=== PATIENT | female | born 1965 | race Caucasian/White ===

== ENCOUNTER → 2020-12-10 10:57 | Outpatient (CLI) | payer OTHER, SELFPAY ==
[2020-12-10 12:02] LABS: Absolute Lymphocyte Count 1.99 X10^3/uL (0.83-4.51); Absolute Neutrophil Count 3.7 X10^3/uL (2.0-7.7); Basophil# 0.05 X10^3/uL; Basophil% 0.8 % (0-1); Eosinophil# 0.14 X10^3/uL; Eosinophils% 2.2 % (0-5); Hemoglobin 13.2 g/dL (12.0-15.0); Lymphocyte # 1.99 X10^3/ul (0.83-4.51); Lymphocyte % 31.1 % (19-41); Mean Corp Hgb Conc 31.4 g/dL (32-36); Mean Corpuscular Hgb 28.4 pg (27.0-32.0); Mean Corpuscular Volume 90.5 fL (81-99); Mean Platelet Vol. 9.5 fl (6.2-12.0); Monocyte# 0.45 X10^3/uL; NRBC Flagged by Analyzer 0 % (0-5); Neutrophil # 3.72 X10^3/uL (2.7-7.7); Neutrophil % 58.3 % (47-70); Platelet Count 255 K/mm3 (150-450); RBC Distribution Width CV 14.3 % (11.6-14.6); RBC Distribution Width SD 47.5 fl (35.1-43.9); Red Blood Count 4.64 M/mm3 (4.2-5.4); White Blood Count 6.4 K/mm3 (4.4-11.0)
[2020-12-10 12:18] LABS: ALB/GLOB Ratio 0.8 RATIO (0.9-2.4); AST(SGOT) 28 U/L (15-37); Alanine Aminotransfer ALT/SGPT 51 U/L (13-56); Albumin, Serum 3.3 g/dL (3.2-5.0); Alkaline Phosphatase 125 U/L (45-117); Anion Gap 9 (5-15); BUN 26 mg/dL (7-18); BUN/Creat Ratio 19.8 RATIO (10-20); Calcium,Total 8.8 mg/dL (8.5-10.1); Chloride 105 mmol/L (98-107); Cholesterol 245 mg/dL (200); Creatinine, Serum 1.31 mg/dL (0.55-1.02); EST Glomerular Filtration Rate 45 mL/min (>60); Est Glom Filt Rate - Afr Amer 54 mL/min (>60); Globulin 3.9 g/dL (2.2-4.2); Glucose 213 mg/dL (74-106); High Density Lipoprotein 30 mg/dL; Potassium 3.7 mmol/L (3.5-5.1); Protein, Total 7.2 g/dL (6.4-8.2); Sodium Level 141 mmol/L (136-145); Thyroid Stim Hormone (TSH) 1.11 uIU/mL (0.358-3.74); Triglycerides 246 mg/dL; Very Low Density Lipoprotein 49 mg/dL (5-40)
[2020-12-10 12:36] LABS: Hemoglobin A1c 8.6 % (3.8-5.6)
== END ==
PROVIDERS: Visit Provider Nurse Practitioner Family
DX: R53.82 Chronic fatigue, unspecified (principal); M62.81 Muscle weakness (generalized); R68.82 Decreased libido
CPT/HCPCS: 36415; 80053; 80061; 83036; 84443; 85025; 86140

== ENCOUNTER → 2023-01-17 | Outpatient (CLI) | payer BC, SELFPAY ==
[2023-01-17 15:25] LABS: Cholesterol 135 mg/dL (200); High Density Lipoprotein 33 mg/dL; Triglycerides 187 mg/dL; Very Low Density Lipoprotein 37 mg/dL (5-40)
== END | disposition home or self-care (01) ==
LOC: LAB 14:11
PROVIDERS: Referring Provider Psychiatry & Neurology Neurology; Visit Provider Psychiatry & Neurology Neurology
DX: I71.21 Aneurysm of the ascending aorta, without rupture (principal); I66.29 Occlusion and stenosis of unspecified posterior cerebral artery
CPT/HCPCS: 36415; 80061

== ENCOUNTER 2023-03-11 09:00 | Outpatient (RCR) | payer BC, SELFPAY ==
--- NOTE | 2022-12-23 14:22 | HP.PTEVAL_ITS ---
Patient's Visit Information Visit Information Visit Information: ADEN JADE is a 57 year old F referred to Physical Therapy by Dr. Surjit Romano MD with a diagnosis of CVA. Date of Evaluation: 12/23/22 Physical Therapist: Og Chan, FAUSTINOT, OCS, CSCS Visit Plan Frequency: 3x /Week Duration: 4-6 Weeks Plan: 3x/week for 4-65 weeks for: 1. L LE strength adn motor control, ankle strength 2. gait with wh walker and AFO for safety and progression to I, steps when appropriate. 3. strengthen and motor control L UE until OT eval and treat. Pt to do ex and gait per HEP and will contact Dr. romano for script for OT consult as well as AFO and wh walker script as needed. Note sent to doc for 3 prescription request Subjective Subjective: Had R sided stroke 9 days ago on plane to [facility]. Symptoms at the time were L side felt heavy arm and leg. Went to hospital in [facility], EKG, MRi catscan and thought narrowing of artery in brain. Has aortic anyeurism also. Sees neuro at [facility] and on meds for one month at least putting off AAA surgery. On blodd pressure meds also. Never had other symptoms. 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 Lying on couch alot now. 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 Using cane to get around, Had walker in hospital but did not want to use it. uses cane to get around at home and someone needs to be with her. L arm is effected also. Leg drags. Basic ADLS are : needs help dressing, is slow and labored due to L sided problems. bathroom ADLs are OK but mobility needs help. Spnge bathing at home. Has a few steps at home and somebody helps her up and down them. Feeling steadier each day. No HEP for this and no regular exercises. Hobbies: none. Objective Objective: Walks cane in UE and L toe dragging with help form son Samir back to PT corner. Needed min A with cane. Wh walker pulled out and needs min A with this for safety as she drags L toe and places L foot too far medially throwing her off balance L. Can correct the placement of L foot with VC but not the toe drag. Transfers bed adn cahir I but somewhat impulsively wanting to hurry. L knee slams back into extension with stance phase of gait. Can stand without assist in place and ec, L knee hyperextended. Ankle movement L is poor with 1/5 DF strength, 2/5 inversion, 0/5 eversion and 3/5 PF strength. R ankle 4/5. Knee strength L flexion 3+ and ext 3+, R side is 4 hip strength is 3 L abd and ext and 3+ flexion vs 4 on R. Motor control in L LE is mod deficits in proprioception and placement. reflexes 2/3 patella and achilles B and bi and tri B. Sensation to gross light touch UE adn LE WFL to gross touch. proprioception L ankle is poor. UE AROM if full but needs VC to eklevate L arm fully. Has weakness at 3+ in L arm fully and 4- R UE. Again, obvious poor motor control on L UE vs R to touching specific objects. Overall patient is slightly impulsive wanting to hurry through and get better quick at the expense of safety. I educated her as well as her son and dtr today on the benefits of AFO, and need for wh walker at least short term as well as still needing someone with her when she is on her feet. Also recommnded OT for UE deficits. Educated on gait including picking L leg up high until gets AFO, placing it out to side, using walker to help with balance. Also seated heel raises, LAQ, marching as hepo throughout day and UE elevation symmetrically with pics of all of the above and educated where to get bracing and walker Balance/Special Test Scores Lower Extremity Functional Score: 7 Goals Goal 1:: I in use of AFO, wh walker and HEP to help with rehab Goal Time Frame: 4-6 Weeks Goal 2:: Walk into and out of PT with LRD(wh walker) I and safely. Goal Time Frame: 4-6 Weeks Goal 3:: Ascend and descend 8 steps safely with one rail I Goal Time Frame: 4-6 Weeks Goal 4:: Pt feel like she is 75% back to normal activity Goal Time Frame: 4-6 Weeks Goal 5:: Plan to return to work Goal Time Frame: 4-6 Weeks Goal 6:: 45 LEFS score Goal Time Frame: 4-6 Weeks Rehabilitation Potential Physical Therapy Diagnosis: CVa with L sided weakness and motor control deficits effecting function/mobility Rehabilitation Potential: Fair Anticipated Interventions Patient/Client Instruction: Educate patient on: Condition and Plan of Care Therapeutic Exercise to Include: Strength training, Balance training, Coordination, Postural training, Flexibilty training, Gait and locomotor training, Neuromotor development, Passive ROM and Active ROM For the Purpose of:: To decrease pain, To increase ROM, To improve nutrient delivery to tissue, To improve muscle performance and motor function, To increase tolerance to activity/condition/position, To improve ability of physical actions for home/community/work/leisure and To improve gait and locomotor functions Orthotics: Brace Comment: AFO and david walker recommended. For the Purpose of:: To improve gait and locomotor functions and To improve safety Text: Thank you for the opportunity to evaluate your patient. For Medicare and Medicare HMO plans, please review the plan of care and approve it. It will need to be FAXED BACK to us at [phone] for Medicare purposes. For Medicare only, by signing this I certify the plan of care. Please let me know if there are questions or concerns regarding this plan of care. Physician Signature: Date:
--- NOTE | 2023-01-04 08:03 | HP.OTEVAL_ITS ---
Patient's Visit Information Visit Information Visit Information: ADEN JADE is a 57 year old F, referred to Occupational Therapy by Dr. Surjit Romano MD, with a diagnosis of CVA left hemiparesis. Date of Evaluation: 01/03/23 Occupational Therapist: Abbie Quiñones, OTR/Lisa, CHT Subjective Subjective: This 57 year old female was seen for OT eval with dx of CVA. Pt states this happened 2022 while traveling to [facility]. Symptoms at the time were L side felt heavy arm and leg. Went to hospital in [facility], EKG, MRi catscan and thought narrowing of artery in brain. Has aortic aneurysm also. Sees neuro at [facility] and on meds for one month at least putting off AAA surgery. On blood pressure meds also. Never had other symptoms. 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 Lying on couch alot now. 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 Using cane to get around, Had walker in hospital but did not want to use it. uses cane to get around at home and someone needs to be with her. L arm is effected also. Leg drags. Basic ADLS are : needs help dressing, is slow and labored due to L sided problems. bathroom ADLs are OK but mobility needs help. Spnge bathing at home. Has a few steps at home and somebody helps her up and down them. Feeling steadier each day. No HEP for this and no regular exercises. Hobbies: none. [ End ] ADLs Eating: Cut food Comments: has shower chair Grooming: Squeeze toothpaste on and [place] teeth Comments: grooming Kitchen: Lift gallon of milk, Take dish out of oven, Load/unload research compliance specialist and Place dish in microwave Household: Vacuum, Sweep/mop and Laundry Yard: Mow lawn and [place] Miscellaneous: Use computer keyboard Comments: pt states she notices slower movements but does most tasks with fair ability currently has 3 children to assist with pt and family family driving pts Pts family doing grocery shopping Home 2 story with two entry- pt has AFO received Tuesday Using cane to get around, Had walker in hospital but did not want to use it. uses cane to get around at home and someone needs to be with her. L arm is effected also. Leg drags. Basic ADLS are : needs help dressing, is slow and labored due to L sided proble ms. bathroom ADLs are OK but mobility needs help. Has a few steps at home and somebody helps her up and down them. Feeling steadier each day. No HEP for this and no regular exercises. Hobbies: none. ROM ROM Comments: pt demo full ROM of BUE noted left UE slight ataxic motion and limited increase time for accuracy. Strength Shoulder: shoulder flexion 13 left 8 Elbow: biceps right 18 left 15 triceps right left 19cm Car Dealer: right 60# left 55# Lateral Pinch: right 20# left 18# Tripod Pinch: right 10# left 12# Strength Comments: pt demo with decrease in left UE strength Sensation Sensation Comments: pt states she has a spot on dorsal forearm Nine Hole Peg Right: right 19.92 sec. Left: left 39.05 sec. In-Hand Manipulation Finger to Palm Translation: Normal - Right and Mild - Left Palm to Finger Translation: Normal - Right and Mild - Left Stroke Specific Quality of Life Total SS-QOL Score: 121 Goals Goal:: Pt will demo a increase in left UE fet2 peak force by 10# to increase pts IND with ADLs and IADls by d.c Goal:: pt will demo a increase in left UE motor control to accurately grasp med, small and large objects to simulate placing or removing items out of cabinets without dropping them by d.c. pt will demo increase in left FMC by decreasing timed 9 hole peg test by 15 sec. by d/c. pt will demo IND with bilateral hand skills to tie, button and manipulate other fasteners by d/c Goal:: pt will report to return to baseline with performing ADLs and IADLS by D/C. Rehabilitation General Assessment: pt demo with a decrease in left UE strength/ poor left UE motor control limiting pts IND with ADLs, IADLs and returning to work. Pt would benefit from skilled OT services 2-3x week for 6 weeks to return pt to her PLOF. Today therapist ed. pt on HEP and gave handouts- pt demo understanding and agree to POC. Rehabilitation Potential: Good Anticipated Interventions Anticipated Interventions: A/AAROM/PROM, Strengthening, Ergonomic Education, Fine Motor Coord/Asim, Neuro Reeducation, ADL Training, Education re assistive Equipment and Home Program Visit Plan Frequency: 2-3x /Week Duration: 6 Weeks TEXT: Thank you for the opportunity to evaluate your patient. For Medicare and Medicare HMO plans, please review the plan of care and approve it. It will need to be FAXED BACK to us at [phone] for Medicare purposes. Please let me know if there are questions or concerns regarding this plan of care. Physician Signature: Date:
--- NOTE | 2023-01-21 14:34 | HP.PTREVAL ---
Re-Evaluation Intro: Dr. Surjit Romano MD, It has been my pleasure to treat ADEN JADE over the last 11 visits for CVA /L weakness. Please see the progress note below for an update on the physical therapy plan of care! Subjective Subjective: I am getting better. But is discouraged right now as she feels plateaud for the last week. I can stand and walk safer than a month ago and needs to hold on less. Not wearing AFO b/c she doesn't think she needs it. Glad she had it for that time period. Using cane out and about and nothing at home. did fall to her knee yesterday leading with bad legs on step and it was too weak.. No injury. Got up well.Go up steps with right leg now. Sleep is OK if not disturbed. Still needs to get back her endurance, Can;t stand long enough to cook without getting tired. Has to rest after minimal activity currently. Legs need to be strenghtened. To doctor Neuro on January 26, Dr. Romano. Objective Objective/Function: Walks with cane to PT mod I with L steppage gait. Walks 200 feet safely prior to starting to mildly cath L toe, realizing it on her own and correcting. Walk 100 feet without AD including FGA with wider DENISHA and more steppage but able with out assist. Everisoon strength still poor at 2 on L and DF 3+ at 14 #, DF much improved. Steps are reciprocal up with rail but weak on L and not full extending. Gait pattern shows no slamming of L knee into extension today as previously. Descends steps onto R only with railing. Goals still appropriate with another 4-6 week plan of care. Plan Plan Plan: continue 3x/week , please ensure ankle strength and proprioception L and to HEP...please get on sink exercises at home. Please progress to more aggressive strength training in gym and functionally in PT and work on balance and gait also. Steps. Balance/Gait/Functional tests Balance/Special Test Scores Functional Gait Assessment Score: 19 % Disability: 36.6700 Lower Extremity Functional Score: 21 Goals Goals Goal 1:: I in use of AFO, wh walker and HEP to help with rehab Goal Time Frame: 4-6 Weeks Goal Progress: got and used. Goal 2:: Walk into and out of PT with LRD(wh walker) I and safely. Goal Time Frame: 4-6 Weeks Goal Progress: cane Goal 3:: Ascend and descend 8 steps safely with one rail I Goal Time Frame: 4-6 Weeks Goal Progress: yes, not reciprocal Goal 4:: Pt feel like she is 75% back to normal activity Goal Time Frame: 4-6 Weeks Goal Progress: 30% Goal 5:: Plan to return to work Goal Time Frame: 4-6 Weeks Goal Progress: not ready, approp Goal 6:: 45 LEFS score Goal Time Frame: 4-6 Weeks Goal Progress: Progressing Anticipated Interventions Anticipated Interventions Patient/Client Instruction: Educate patient on: Condition and Plan of Care Therapeutic Exercise to Include: Strength training, Balance training, Coordination, Postural training, Flexibilty training, Gait and locomotor training, Neuromotor development, Passive ROM and Active ROM For the Purpose of:: To decrease pain, To increase ROM, To improve nutrient delivery to tissue, To improve muscle performance and motor function, To increase tolerance to activity/condition/position, To improve ability of physical actions for home/community/work/leisure and To improve gait and locomotor functions Orthotics: Brace Comment: AFO and wh walker recommended. For the Purpose of:: To improve gait and locomotor functions and To improve safety Re-Evaluation Ending Re-evaluation ending: Please do not hesitate to contact me at [phone] by phone or if you have questions or concerns regarding this new plan of care! Sincerely, Og Chan, DPT, OCS, CSCS
--- NOTE | 2023-02-09 13:31 | HP.PTREVAL ---
Re-Evaluation Intro: Dr. Surjit Romano MD, It has been my pleasure to treat ADEN JADE over the last 18 visits for CVA/L weakness. Please see the progress note below for an update on the physical therapy plan of care! Subjective Subjective: I have plateau'd . I am still hobbling. Walking is not getting better. Had a fall a week ago catching toe when walking real fast. Not using AFO. Cane never ahome. Uses cane for longer distances. Neuro says this is as good as she may get. Not done ex lately as she has not felt like it but has a program. Objective Objective/Function: Walks with some L awkwardness but I without AD with wide DENISHA, motor control worse on L vs R. I with and without cane. Catches toe L once self corrected. FGA is similar to last time as is LEFS. pt feels like she could continue in gym with one more instruct visit and will get back to HEP at sink. 2 goals still appropriate and fair prognosis with compliance. Plan Plan Plan: 3x/week fro 4 weeks. Please give list of gym ex and let patient complete I prior or after mid day sessions. Focus in PT on 30 min L leg proprioception, motor control and fine motor and gait with narrowing DENISHA and heel to toe and funcitonal challenges utiizing L LE. Balance/Gait/Functional tests Balance/Special Test Scores Functional Gait Assessment Score: 22 % Disability: 26.6700 Lower Extremity Functional Score: 23 Goals Goals Goal 1:: I in use of AFO, wh walker and HEP to help with rehab Goal Time Frame: 4-6 Weeks Goal Progress: met, not using. Goal 2:: Walk into and out of PT with LRD(wh walker) I and safely. Goal Time Frame: 4-6 Weeks Goal Progress: Goal Met Goal 3:: Ascend and descend 8 steps safely with one rail I Goal Time Frame: 4-6 Weeks Goal Progress: Goal Met Goal 4:: Pt feel like she is 75% back to normal activity Goal Time Frame: 4-6 Weeks Goal Progress: 50%, appropriate Goal 5:: Plan to return to work Goal Time Frame: 4-6 Weeks Goal Progress: not ready, approp Goal 6:: 45 LEFS score Goal Time Frame: 4-6 Weeks Goal Progress: Not Progressing, appropri Anticipated Interventions Anticipated Interventions Patient/Client Instruction: Educate patient on: Condition and Plan of Care Therapeutic Exercise to Include: Strength training, Balance training, Coordination, Postural training, Flexibilty training, Gait and locomotor training, Neuromotor development, Passive ROM and Active ROM For the Purpose of:: To decrease pain, To increase ROM, To improve nutrient delivery to tissue, To improve muscle performance and motor function, To increase tolerance to activity/condition/position, To improve ability of physical actions for home/community/work/leisure and To improve gait and locomotor functions Orthotics: Brace Comment: AFO and wh walker recommended. For the Purpose of:: To improve gait and locomotor functions and To improve safety Re-Evaluation Ending Re-evaluation ending: Please do not hesitate to contact me at [phone] by phone or if you have questions or concerns regarding this new plan of care! Sincerely, Og Chan, DPT, OCS, CSCS
--- NOTE | 2023-02-13 11:43 | OTREVAL_ITS ---
Re-Evaluation Intro: Dr. Surjit Romano MD, It has been my pleasure to treat ADEN JADE over the last 17 visits for CVA left hemiparesis. Please see the progress note below for an update on the occupational therapy plan of care! Subjective Subjective: pt arrives to session: following PT. pt states she has trouble with balance letting her dogs out. pt states she can not get left foot in shoe. pt states she has difficulty to hold her left hand steady- Objective Objective/Function: Operation Specialist: right 80# left 65# Lateral Pinch: right 20# left 20# Tripod Pinch: right 13# left 14# left shoulder flex 13#/ext 19# right shoulder flex 23#/19# pt states she is doing her HEP (t-band) Plan Plan Frequency: 2-3x /Week Duration: 6 Weeks Visits in this POC: (30 OT/PT combined) 6 weeks (2-3x week) Plan: Continue POC: 6 weeks (2-3x week) have pt work on reaching out infront of her to grasp a number of different wts/ and size objects pt want better gross motor control with reaching- pt would benefit from further skilled OT services 2-3x week for 6 weeks Goals Goals Patient Goals: Regain Mobility, Regain Strength, Use Hand/Wrist/Arm Normally Again, Learn to Manage Lymphedema and Be More Independent in ADLS Goal:: Pt will demo a increase in left UE fet2 peak force by 10# to increase pts IND with ADLs and IADls by d.c pt will demo a increase in gross motor control demo the ability to simulate placing a variety of objects on different shelf heights/carry with left without dropping/and hitting her target at 90% accuracy by d.c to increase pts ind with IADLS. Goal:: pt will demo a increase in left UE motor control to accurately grasp med, small and large objects to simulate placing or removing items out of cabinets without dropping them by d.c. pt will demo increase in left FMC by decreasing timed 9 hole peg test by 15 sec. by d/c. pt will demo IND with bilateral hand skills to tie, button and manipulate other fasteners by d/c Goal:: pt will report to return to baseline with performing ADLs and IADLS by D/C. Anticipated Interventions Anticipated Interventions Anticipated Interventions: A/AAROM/PROM, Strengthening, Ergonomic Education, Fine Motor Coord/Asim, Neuro Reeducation, ADL Training, Education re assistive Equipment and Home Program Re-Evaluation Ending Re-evaluation ending: Please do not hesitate to contact me at [phone] by phone or if you have questions or concerns regarding this new plan of care! Sincerely, Abbie Quiñones, OTR/L, CHT
--- NOTE | 2023-03-11 10:10 | HP.PTDCSUM_ITS ---
Discharge Summary D/C summary: It has been my pleasure to treat ADEN JADE referred by Dr. Surjit Romano MD, with the diagnosis of CVA/L weakness for a total of 30 visit(s). Discharge Date: 03/11/23 Please see the following information for a summary of their discharge status. Subjective Subjective: Walking is better, not using AD unless tired, does not wish to use one. has cane for if she needs it. Activities at home are getting done. Still can't do any heavy lifting, has trouble with dogs on uneven ground(has someone with her). Dressing self except for L arm pain with shirt on as shoulder hurts. L shoulder hurts and will seek medical attention for that. Worsening ability to do bra straps due to pain. Showers self and getting up out of tub is still hard. Steps at home are not a problem but needs to focus. 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 Not much lifting. Will talk to doctor about this. F/u with neuro in [facility]. Pain L knee: Pain Intensity (Out of 10): 0 L shoulder: Pain Intensity (Out of 10): 10 Overall Improvement % Improvement: 75 Objective Objective/Function: Gait is I without AD but avoids full extension L knee and hard time with push off, however safe and funcitonal. Trasnfers chair I. FGA 25/30 and safe on firm flat surface, has compensations with gait but has learned to get around with them well. DF strength 4 L and 4+ R, HS strength 4- L and 4 R, more motor control,slow contraction deficits in these muscles then weakness. UE AROM is WFL, strength is 4-, no pain with shoulder elevation at mid line or IR/er today but hurts end range of flexion especially with thumb down and abduction and ir is slow. Steps are reciprocal with one rail and no pain or obvious funcitonal weakness L to right, agian avoids full extension L knee but able to get this with cues, less motor control at end. Pt has maxxed her visits for this calendar year and is comfortable continuing strength in gym as member. Will contact doctor regarding L shoulder pain options, may be appropriate for more specific L leg motor control therapy in new year if desired, needed or l shoulder pain therapy if found appropriate by physician. Goals Goal 1:: I in use of AFO, wh walker and HEP to help with rehab Goal Progress: not needed. Goal 2:: Walk into and out of PT with LRD(wh walker) I and safely. Goal Progress: Goal Met Goal 3:: Ascend and descend 8 steps safely with one rail I Goal Progress: Goal Met Goal 4:: Pt feel like she is 75% back to normal activity Goal Progress: Goal Met Goal 5:: Plan to return to work Goal Progress: planned Goal 6:: 45 LEFS score Goal Progress: Progressing Plan Plan: d/c to gym program and HEP, reviewed protective strategies of L shoulder and options with treatment. Pt to contact doctor regarding options with L shoulder. D/C Information Discharge Comments: see objective above d/c sentence: If there are questions or concerns regarding this patient's physical therapy, please feel free to call me at [phone]. Thank you for the referral of this patient. Sincerely, Og Chan, DPT, OCS, CSCS Balance/Gait/Functional tests Balance/Special Test Scores Functional Gait Assessment Score: 25 % Disability: 16.6700 Lower Extremity Functional Score: 33 Improvement % Improvement: 75
--- NOTE | 2023-03-11 10:46 | OTREVAL_ITS ---
Re-Evaluation Intro: Dr. Surjit Romano MD, It has been my pleasure to treat ADEN JADE over the last 28 visits for CVA left hemiparesis. Please see the progress note below for an update on the occupational therapy plan of care! Subjective Subjective: pt states she has had increase in left shoulder pain. pt states increase pain with internal rotation Objective Objective/Function: left monitoring analyst 65# initial 55# left shoulder flexion NOT tested initial 13# left shoulder ext. 23# initial 19# left biceps 20.2# initial 15# left triceps 20.5# initial 19# 9 hole peg test initial was 39.05 current 29.0 pt states she since her shoulder started hurting she has increase assistance with dressing- pt states she can perform LB dressing at VLADIMIR Level at times needs assissatce with left shoe on pt states she is using a shower chair with showering and is at VLADIMIR pt goes with son to assist/ Push shopping cart pt states she is VLADIMIR with laundry pt states shis VLADIMIR with cleaning pt states difficulty with taking dogs out due to unlevel ground. pt has made gains with left UE gross motor control since her evaluation- as well with increase in her left monitoring analyst strength. pt also has made gains with performing her ADLs and IADls at a VLADIMIR level pt also has returned to driving - Pt continues to demo deficits in left UE motor control and weakness limiting her from reaching her IND goals- Due to insurance limitations- pt will cont. with her HEP and working out in the gym-\ Therapist advised to contact family for ortho consolation on left shoulder pain. Plan Plan Visits in this POC: due insureace limitation pt will cont. with HEP and gym program Plan: pt will agree to contact family for ortho consolation for pain in left shoulder- pt will cont. with gym ex program and HEP as tolerated Goals Goals Patient Goals: Regain Mobility, Regain Strength, Use Hand/Wrist/Arm Normally Again, Learn to Manage Lymphedema and Be More Independent in ADLS Goal:: Pt will demo a increase in left UE fet2 peak force by 10# to increase pts IND with ADLs and IADls by d.c ( on hold due to shoulder pain) pt will demo a increase in gross motor control demo the ability to simulate placing a variety of objects on different shelf heights/carry with left without dropping/and hitting her target at 90% accuracy by d.c to increase pts ind with IADLS.( goal met) Goal:: pt will demo a increase in left UE motor control to accurately grasp med, small and large objects to simulate placing or removing items out of cabinets without dropping them by d.c. ( goal met) pt will demo increase in left FMC by decreasing timed 9 hole peg test by 15 sec. by d/c. ( met by 10 sec) pt will demo IND with bilateral hand skills to tie, button and manipulate other fasteners by d/c ( increase time to perform ) Goal:: pt will report to return to baseline with performing ADLs and IADLS by D/C. Pt at VLADIMIR level with ADLs -left shoulder pain limiting pts ind. Anticipated Interventions Anticipated Interventions Anticipated Interventions: A/AAROM/PROM, Strengthening, Ergonomic Education, Fine Motor Coord/Asim, Neuro Reeducation, ADL Training, Education re assistive Equipment and Home Program Re-Evaluation Ending Re-evaluation ending: Please do not hesitate to contact me at [phone] by phone or if you have questions or concerns regarding this new plan of care! Sincerely, Abbie Quiñones, OTR/L, CHT
== END 2023-03-11 19:00 | disposition home or self-care (01) ==
LOC: OT 09:00
PROVIDERS: Referring Provider Psychiatry & Neurology Neurology; Visit Provider Psychiatry & Neurology Neurology
DX: I69.354 Hemiplegia and hemiparesis following cerebral infarction affecting left non-dominant side (principal)
CPT/HCPCS: 97110; 97112; 97163; 97164; 97166; 97530

== ENCOUNTER → 2023-08-11 | Outpatient (CLI) | payer BC, SELFPAY ==
[2023-08-11 11:11] LABS: Anion Gap 3 (5-15); BUN 21 mg/dL (7-18); BUN/Creat Ratio 21.5 RATIO (10-20); Chloride 107 mmol/L (98-107); Creatinine, Serum 0.98 mg/dL (0.55-1.02); EST Glomerular Filtration Rate 62 mL/min (>60); Est Glom Filt Rate - Afr Amer 75 mL/min (>60); Glucose 119 mg/dL (74-106); Sodium Level 139 mmol/L (136-145)
== END | disposition home or self-care (01) ==
DX: I47.10 Supraventricular tachycardia, unspecified (principal); R07.9 Chest pain, unspecified; I10 Essential (primary) hypertension
CPT/HCPCS: 36415; 80048

== ENCOUNTER → 2023-08-29 | Outpatient (CLI) | payer BC, SELFPAY ==
[2023-08-29 15:17] LABS: Absolute Lymphocyte Count 2.07 X10^3/uL (0.83-4.51); Basophil# 0.04 X10^3/uL; Basophil% 0.5 % (0-1); Eosinophil# 0.14 X10^3/uL; Eosinophils% 1.8 % (0-5); Hematocrit 43.1 % (37-47); Hemoglobin 13.9 g/dL (12.0-15.0); Lymphocyte # 2.07 X10^3/ul (0.83-4.51); Lymphocyte % 26.7 % (19-41); Mean Corp Hgb Conc 32.3 g/dL (32-36); Mean Corpuscular Hgb 29.5 pg (27.0-32.0); Mean Corpuscular Volume 91.5 fL (81-99); Mean Platelet Vol. 9.8 fl (6.2-12.0); Monocyte# 0.48 X10^3/uL; Monocyte% 6.2 % (0-10); NRBC Flagged by Analyzer 0 % (0-5); Neutrophil # 4.99 X10^3/uL (2.7-7.7); Neutrophil % 64.4 % (47-70); Platelet Count 270 K/mm3 (150-450); RBC Distribution Width CV 13.6 % (11.6-14.6); RBC Distribution Width SD 45.9 fl (35.1-43.9); Red Blood Count 4.71 M/mm3 (4.2-5.4); White Blood Count 7.8 K/mm3 (4.4-11.0)
[2023-08-29 16:22] LABS: Anion Gap 6 (5-15); BUN 25 mg/dL (7-18); BUN/Creat Ratio 16.8 RATIO (10-20); Chloride 106 mmol/L (98-107); Creatinine, Serum 1.49 mg/dL (0.55-1.02); EST Glomerular Filtration Rate 38 mL/min (>60); Est Glom Filt Rate - Afr Amer 46 mL/min (>60); Glucose 215 mg/dL (74-106); Potassium 4.1 mmol/L (3.5-5.1); Sodium Level 140 mmol/L (136-145)
== END | disposition home or self-care (01) ==
LOC: LAB 14:44
DX: I10 Essential (primary) hypertension (principal); R07.9 Chest pain, unspecified
CPT/HCPCS: 36415; 80048; 85025

== ENCOUNTER → 2023-12-13 | Outpatient (CLI) | payer BC, SELFPAY ==
[2023-12-13 19:22] LABS: Absolute Lymphocyte Count 2.58 X10^3/uL (0.83-4.51); Absolute Neutrophil Count 5.4 X10^3/uL (2.0-7.7); Basophil# 0.04 X10^3/uL; Basophil% 0.4 % (0-1); Eosinophil# 0.15 X10^3/uL; Eosinophils% 1.7 % (0-5); Hematocrit 40.9 % (37-47); Hemoglobin 12.9 g/dL (12.0-15.0); Lymphocyte # 2.58 X10^3/ul (0.83-4.51); Lymphocyte % 28.9 % (19-41); Mean Corp Hgb Conc 31.5 g/dL (32-36); Mean Corpuscular Hgb 29.1 pg (27.0-32.0); Mean Corpuscular Volume 92.3 fL (81-99); Mean Platelet Vol. 9.2 fl (6.2-12.0); Monocyte# 0.73 X10^3/uL; Monocyte% 8.2 % (0-10); NRBC Flagged by Analyzer 0 % (0-5); Neutrophil # 5.39 X10^3/uL (2.7-7.7); Neutrophil % 60.5 % (47-70); Platelet Count 260 K/mm3 (150-450); RBC Distribution Width CV 14.3 % (11.6-14.6); RBC Distribution Width SD 48.3 fl (35.1-43.9); Red Blood Count 4.43 M/mm3 (4.2-5.4); White Blood Count 8.9 K/mm3 (4.4-11.0)
[2023-12-13 19:37] LABS: ALB/GLOB Ratio 0.9 RATIO (0.9-2.4); AST(SGOT) 14 U/L (15-37); Alanine Aminotransfer ALT/SGPT 24 U/L (13-56); Albumin, Serum 3.6 g/dL (3.2-5.0); Alkaline Phosphatase 107 U/L (45-117); Anion Gap 6 (5-15); BUN 19 mg/dL (7-18); Calcium,Total 9.8 mg/dL (8.5-10.1); Chloride 107 mmol/L (98-107); Cholesterol 184 mg/dL (200); Creatinine, Serum 1.12 mg/dL (0.55-1.02); EST Glomerular Filtration Rate 53 mL/min (>60); Est Glom Filt Rate - Afr Amer 64 mL/min (>60); Globulin 3.9 g/dL (2.2-4.2); Glucose 125 mg/dL (74-106); High Density Lipoprotein 43 mg/dL; Potassium 3.6 mmol/L (3.5-5.1); Protein, Total 7.5 g/dL (6.4-8.2); Sodium Level 141 mmol/L (136-145); Triglycerides 175 mg/dL; Very Low Density Lipoprotein 35 mg/dL (5-40)
[2023-12-13 19:46] LABS: Microalbumin,Random Urine 14.2 mg/L (NO RANGE EST.); Microalbumin:Creatinine Ratio 28.5 mg/g CRE (<30 mg/g CRE)
[2023-12-13 19:53] LABS: Hemoglobin A1c 5.9 % (3.8-5.6)
== END | disposition home or self-care (01) ==
LOC: LAB 18:51
DX: E11.9 Type 2 diabetes mellitus without complications (principal)
CPT/HCPCS: 36415; 80053; 80061; 82043; 82570; 83036; 85025

== ENCOUNTER 2024-06-22 09:15 | Outpatient (RCR) | payer BC, SELFPAY ==
[2024-05-29 14:03] VITALS: BMI 31.4
== END 2024-06-22 23:59 ==
LOC: CR 09:15
DX: Z98.890 Other specified postprocedural states (principal); Z95.828 Presence of other vascular implants and grafts; Z86.79 Personal history of other diseases of the circulatory system
CPT/HCPCS: 93798

== ENCOUNTER 2024-06-29 09:15 | Outpatient (RCR) | payer BC, SELFPAY ==
[2024-05-29 14:03] VITALS: BMI 31.4
--- NOTE | 2024-06-26 07:22 | PCM.CR.ITP ---
Exercise - Initial Assessment Visit Session #:: 8 Physician Prescribed Exercise Modalities: Treadmill, SciFit Stepper and SciFit Lateral [place] Nutrition - Initial Assessment Weight Mgt (Other Care) Height: 5 ft 8.5 in Weight:: 215 lb BMI: 32.2 Psychosocial - Initial Assess Target Goals Target Goals Referral to Behavioral Health PS - Interventions: Yes: Attend Stress Management Classes Patient Health Questionnaire PHQ-9 Screening 30-Day Re-eval Assessment: 1. Little interest or pleasure in doing things: Not at all 2. Feeling down, depressed, or hopeless: Several days 3. Trouble falling or staying asleep, or sleeping too much: Several days 4. Feeling tired or having little energy: Several days 5. Poor appetite or overeating: Several days 6. Feeling bad about yourself -- or that you are a failure or have let yourself or your family down: Not at all 7. Trouble concentrating on things, such as reading the newspaper or watching television: Not at all 8. Moving or speaking so slowly that other people could have noticed. Or the opposite - being so fidgety or restless that you have been moving around a lot more than usual: Not at all 9. Thoughts that you would be better off , or of hurting yourself in some way: Not at all How difficult have these problems made it for you to do your work, take care of things at home, or get along with other people?: Not difficult at all Total Score: 4 Self-Efficacy 6-Item Scale 30-Day Re-eval Assessment: We would like to know how confident you are in doing certain activities. Please select your confidence level for: Fatigue Select Number: 10 Physical Discomfort or Pain Select Number: 10 Emotional Distress Select Number: 10 Other Symptoms or Health Problems Select Number: 10 Different Tasks and Activities Select Number: 10 Medication Select Number: 10 Total Score:: 10 Nutrition Survey Nutrition Survey Instructions Scoring Instructions Exercise - 30-day Assessment Visit Date of Eval: 06/26/24 Session #:: 8 Physician Prescribed Exercise Modalities: Treadmill, SciFit Stepper and SciFit Lateral Thermal Cutter Hand Frequency: 3x/week for 12 weeks [36 sessions] Intensity: 60-80% of age predicted maximum heart rate reserve Duration: 30 - 45 minutes Current METSs:: 3.7 Target Heart Rate:: 97-121 Current RPE:: 11.5-12.5 Maximum Excercise HR:: 103 Resting Blood Pressure: 130/60 Maximum Exercise Blood Pressure: 168/90 EKG Type: SR to ST with rare pac, pvc. QT appears prolonged which pt has had Outcomes & Goals Goals:: Verbalizes understanding of THR, RPE & goal METS by session 6, Documents in home exercise log/reports 30 min aerobic 5 day/wk by DC, Demonstrates accurate pulse taking by DC and Other additional outcome/goals: see below Intervention & Plan Exercise Program Goals: Instruct on personal THR & RPE, Instruct on MET level & personal MET goal, Show patient to take own pulse /validate performance until accurate, Instruct on home exercise and Other additional plan/int Physical Activity Home Exercise Physical Activity - Home Exercise: Safe Exercise, Warm-up, Self-monitoring, Cool-Down, Home Exercise > 30 min Daily and Sitting Time <3 hours/daily Outcomes & Goals Outcomes/Goals: Demonstrates correct Warm-up/exercise Cool-Down (S3) if = 2.5 METs, Verbalizes symptoms of exercise intolerance by Session 3 (S3), Demonstrate safe equipment use (S3) & follows exercise prescrition (6) and Other: See below Intervention & Plan Plan/Intervention: Instruct warm-up & cool-down if exercising at > 2 METs, Instruct on symptoms of exercise intolerance & actions to take, Instruct & monitor on saf, Assess intial functional capacity & safety risk and Other See below 30-day Reassessments 30 day Reassessments:: Progressing Reassessment Notes & Comments:: RPE explained to pt. Pt demonstrates understanding in her daily sessions. Exercise - 60-day Assessment Physician Prescribed Exercise Modalities: Treadmill, SciFit Stepper and SciFit Lateral [place] Exercise - 90-day Assessment Physician Prescribed Exercise Modalities: Treadmill, SciFit Stepper and SciFit Lateral [place] Exercise - Final/Discharge Physician Prescribed Exercise Modalities: Treadmill, SciFit Stepper and SciFit Lateral Thermal Cutter Hand Nutrition - 30-Day Assessment Program Goals Nutrition Program Goals Patient has diagnosis of Hyperlipidemia (ICD E78)?: Yes Visit Date of Eval: 06/26/24 Session #:: 8 Cholesterol/Lipids (Other Core Measures) Determine presence & major risk factors that modify LDL goal: Hypertension or hypertensive medication, Low HDL cholesterol <40 mg/dL*, Family history of premature CHD in Male < 55 years: female <65 yearsFa and Age men > 45 years; women >/= 55 years Outcomes/Goals: Pt IDs own risk factors & lifestyle modifications by Session 10, Verbalizes symptoms of angina & response by session 3., Pt independently manages and Other Additional Outcomes/Goals: Intervention/Plan: Advocate for lipid panel cholesterol medication if applicable, Instruct on personal lipid levels & lipid goals/NCEP guidelines, Instruct on cholesterol and Other additional plan/int Diabetes (Other Core Measures) Diabetes Type: Diagnosis Type II ICD-10 E11 Insulin dependent injection/pump?: No Non-Insulin Dependent?: Yes Referral to Diabetic Clinic:: No Weight Mgt (Other Care) Height: 5 ft 8.5 in Weight:: 215 lb BMI: 32.2 Diagnosis Overweight/Obesity BMI> 30% ICD-10 E66: Yes Diagnosis High BMI/Morbid Obesity BMI> 35% ICD-10 Z68: No Outcomes/Goals: Pt sets, maintains & shows weight loss goal & trend during rehab and Other additional outcomes/goals Intervention/Plan: Instruct on ideal BMI & set weight loss goal w/patient, Assist pt to ID & incorporate diet changes for weight loss by S9, Refer to Structured Weight Loss program as appropriate, Encourage goal of using 250-300dcal per session for weight loss and Other additional plan/interventions Healthy Eating Habits Will attend diet classes:: Yes Outcomes/Goals:: Consume diet rich in vegs,fruits,whole grain/high fiber,fish,lean meat, Limit sat/trans fats,cholesterol & added salts & sugars and Other additional outcome/goals: 30-day Reassessments:: Progressing Reassessment Notes & Comments:: Pt is encouraged to eat a low sodium heart healthy diet. 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 Education Gave educational materials for:: Signs & symptoms of hypoglycemia, Signs & symptoms of hyperglycemia, Relate diabetes to coronary artery disease and Healthy eating Nutrition - 60-Day Assessment Weight Mgt (Other Care) Height: 5 ft 8.5 in Weight:: 215 lb BMI: 32.2 Core - 30-Day Assessment Visit Date of Eval: 06/26/24 Session #:: 8 Medication Compliance Preventative Medication(s):: Aspirin, Statin/lipid, Beta perry and ARB (Angiotensi Rcap) H/O mental health issues: depression, anxiety, or addiction?: Yes Doesn?t believe in the benefits of treatment?: No Believes medications are unnecessary or harmful?: No Has a concern about medication side effects?: No Expresses concern over the cost of medications?: No Outcomes/Goals: Verbalizes medications,desired effect & common side effects @ DC, Pt self-reports following medication regimen, Keeps card in wallet w/medications listed by DC and Other additional outcome/goals: Interventions/plans: Instruct on medication effects & side effects, Review medication list w/patient every two weeks, Instruct importance of taking meds as ordered & assist problem solving and Other additional Tobacco Use Tobacco Use: Non-smoker Hypertension Hypertension Diagnosis:: Hypertension ICD-10 I10 Resting Blood Pressure:: 130/60 [place] [employer] Hypertension Guidelines Peak Exercise Blood Pressure:: 168/90 Outcomes/Goals: Able to verbalize/achieve optimal blood pressure <130/80, Incorporates diet changes & exercise for blood pressure control by DC and Other additional outcomes/goals Interventions/plan: Instruct on optimal blood pressure, hypertension & medications, Instruct on effects of sodium, alcohol, stress, exercise &hypertension and Other additional plan/interventions 30 day Reassessments:: Progressing Reassessment Notes & Comments:: Low sodium diet and weight loss encouraged to help lower BP's. Will continue to monitor and send report to pt's physician if necessary. Tobacco Cessation Referral Smoking Cessation Referral:: No Individual Education/Counseling:: No Education Schedule Given:: Yes Psychosocial - 30-Day Assess VIsit Date of Eval: 06/26/24 Session #:: 8 History of previous Mental disease:: Yes History of Emotional Disorders: Anxious and Depression Target Goals Target Goals Psychosocial Test Tool Used:: [employer] QOL Cardiac and PHQ-9 Questionnaire phq-9 Severity Referral to Behavioral Health PS - Interventions: Yes: Attend Stress Management Classes Outcomes/Goals: See list Psychosocial Outcomes/Goals:: ID's personal stressors & 2 strategies to manage stress by discharge and Other Additional outcome/goals: Intervention/Plan: See List Interventions/Plan:: Assess stressors,coping strategies & signs of derpression on admission, Instruct/assist pt to develop coping & personal stress Mgt strategies, Refer to Behavioral Health if appropriate, Refer to Physician if appropriate, Instruct patient to recognize signs & symptoms of depression, Instruct patient to recog and Other additional plan/intervention 30-day Reassessments: 30 day Reassessments:: Progressing Reassessment Notes & Comments:: Pt to attend stress management class. Psychosocial - 60-Day Assess Target Goals Target Goals Referral to Behavioral Health PS - Interventions: Yes: Attend Stress Management Classes Outcomes/Goals: See list Psychosocial Outcomes/Goals:: ID's personal stressors & 2 strategies to manage stress by discharge and Other Additional outcome/goals: Psychosocial - 90-Day Assess Target Goals Target Goals Referral to Behavioral Health PS - Interventions: Yes: Attend Stress Management Classes Psychosocial - Final Assessmen Target Goals Target Goals Referral to Behavioral Health PS - Interventions: Yes: Attend Stress Management Classes Nutrition - 90-Day Assessment Weight Mgt (Other Care) Height: 5 ft 8.5 in Weight:: 215 lb BMI: 32.2 Nutrition - Final Assessment Weight Mgt (Other Care) Height: 5 ft 8.5 in Weight:: 215 lb BMI: 32.2
[2024-06-26 07:36] VITALS: BP 130/60; BMI 32.2
== END 2024-07-23 23:59 ==
LOC: CR 09:15
DX: Z98.890 Other specified postprocedural states (principal); Z95.828 Presence of other vascular implants and grafts; Z86.79 Personal history of other diseases of the circulatory system
CPT/HCPCS: 93798

== ENCOUNTER 2024-07-25 07:03 | Outpatient (RCR) | payer BC, SELFPAY ==
[2024-06-26 07:36] VITALS: BMI 32.2
[2024-07-24 00:29] VITALS: BP 130/60
--- NOTE | 2024-07-26 07:01 | CR.ITP_ITS ---
Exercise - Initial Assessment Physician Prescribed Exercise Modalities: Treadmill, SciFit Stepper and SciFit Lateral [place] Nutrition - Initial Assessment Weight Mgt (Other Care) Height: 5 ft 8.5 in Weight:: 215 lb 8 oz BMI: 32.3 Core - Initial Assessment Hypertension Resting Blood Pressure:: 110/64 [place] [employer] Hypertension Guidelines Psychosocial - Initial Assess Target Goals Target Goals Referral to Behavioral Health PS - Interventions: Yes: Attend Stress Management Classes Patient Health Questionnaire PHQ-9 Screening 60-Day Re-eval Assessment: 1. Little interest or pleasure in doing things: Not at all 2. Feeling down, depressed, or hopeless: Several days 3. Trouble falling or staying asleep, or sleeping too much: Several days 4. Feeling tired or having little energy: Several days 5. Poor appetite or overeating: Several days 6. Feeling bad about yourself -- or that you are a failure or have let yourself or your family down: Not at all 7. Trouble concentrating on things, such as reading the newspaper or watching television: Not at all 8. Moving or speaking so slowly that other people could have noticed. Or the opposite - being so fidgety or restless that you have been moving around a lot more than usual: Not at all 9. Thoughts that you would be better off , or of hurting yourself in some way: Not at all How difficult have these problems made it for you to do your work, take care of things at home, or get along with other people?: Not difficult at all Total Score: 4 Self-Efficacy 6-Item Scale 60-Day Re-eval Assessment: We would like to know how confident you are in doing certain activities. Please select your confidence level for: Fatigue Select Number: 10 Physical Discomfort or Pain Select Number: 10 Emotional Distress Select Number: 10 Other Symptoms or Health Problems Select Number: 10 Different Tasks and Activities Select Number: 10 Medication Select Number: 10 Total Score:: 10 Nutrition Survey Nutrition Survey Instructions Scoring Instructions Exercise - 30-day Assessment Physician Prescribed Exercise Modalities: Treadmill, SciFit Stepper and SciFit Lateral [place] Exercise - 60-day Assessment Visit Date of Eval: 07/26/24 Session #:: 10 (Pt has not attended CR since 06/29/24.) Physician Prescribed Exercise Modalities: Treadmill, SciFit Stepper and SciFit Lateral [place] Frequency: 3x/week for 12 weeks [36 sessions] Intensity: 60-80% of age predicted maximum heart rate reserve Duration: 30 - 45 minutes Current METSs:: 3.8 Target Heart Rate:: 97-121 Current RPE:: 12-12.5 Maximum Excercise HR:: 122 Resting Blood Pressure: 140/74 Maximum Exercise Blood Pressure: 144/78 EKG Type: NSR-ST with rare PAC. QT appears prolonged which has been since starting. Outcomes & Goals Goals:: Verbalizes understanding of THR, RPE & goal METS by session 6, Documents in home exercise log/reports 30 min aerobic 5 day/wk by DC, Demonstrates accurate pulse taking by DC and Other additional outcome/goals: see below Intervention & Plan Exercise Program Goals: Instruct on personal THR & RPE, Instruct on MET level & personal MET goal, Show patient to take own pulse /validate performance until accurate, Instruct on home exercise and Other additional plan/int Physical Activity Home Exercise Physical Activity - Home Exercise: Safe Exercise, Warm-up, Self-monitoring, Cool-Down, Home Exercise > 30 min Daily and Sitting Time <3 hours/daily Outcomes & Goals Outcomes/Goals: Demonstrates correct Warm-up/exercise Cool-Down (S3) if = 2.5 METs, Verbalizes symptoms of exercise intolerance by Session 3 (S3), Demonstrate safe equipment use (S3) & follows exercise prescrition (6) and Other: See below Intervention & Plan Plan/Intervention: Instruct warm-up & cool-down if exercising at > 2 METs, Instruct on symptoms of exercise intolerance & actions to take, Instruct & monitor on saf, Assess intial functional capacity & safety risk and Other See below 30-day Reassessments 30 day Reassessments:: Not Met Reassessment Notes & Comments:: Pt has not attended CR since 06/29/24 Exercise - 90-day Assessment Physician Prescribed Exercise Modalities: Treadmill, SciFit Stepper and SciFit Lateral [employer]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 Exercise - Final/Discharge Physician Prescribed Exercise Modalities: Treadmill, SciFit Stepper and SciFit Lateral [employer]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 Nutrition - 30-Day Assessment Weight Mgt (Other Care) Height: 5 ft 8.5 in Weight:: 215 lb 8 oz BMI: 32.3 Nutrition - 60-Day Assessment Program Goals Nutrition Program Goals Patient has diagnosis of Hyperlipidemia (ICD E78)?: Yes Visit Date of Eval: 07/26/24 Session #:: 10 (Pt has not attended CR since 06/29/24.) Cholesterol/Lipids (Other Core Measures) Determine presence & major risk factors that modify LDL goal: Hypertension or hypertensive medication, Low HDL cholesterol <40 mg/dL*, Family history of premature CHD in Male < 55 years: female <65 yearsFa and Age men > 45 years; women >/= 55 years Outcomes/Goals: Pt IDs own risk factors & lifestyle modifications by Session 10, Verbalizes symptoms of angina & response by session 3., Pt independently manages and Other Additional Outcomes/Goals: Intervention/Plan: Advocate for lipid panel cholesterol medication if applicable, Instruct on personal lipid levels & lipid goals/NCEP guidelines, I nstruct on cholesterol and Other additional plan/int Diabetes (Other Core Measures) Diabetes Type: Diagnosis Type II ICD-10 E11 Non-Insulin Dependent?: Yes Weight Mgt (Other Care) Height: 5 ft 8.5 in Weight:: 215 lb 8 oz BMI: 32.3 Diagnosis Overweight/Obesity BMI> 30% ICD-10 E66: Yes Diagnosis High BMI/Morbid Obesity BMI> 35% ICD-10 Z68: No Outcomes/Goals: Pt sets, maintains & shows weight loss goal & trend during rehab and Other additional outcomes/goals Intervention/Plan: Instruct on ideal BMI & set weight loss goal w/patient, Assist pt to ID & incorporate diet changes for weight loss by S9, Refer to Structured Weight Loss program as appropriate, Encourage goal of using 250- 300dcal per session for weight loss and Other additional plan/interventions Healthy Eating Habits Will attend diet classes:: Yes Outcomes/Goals:: Consume diet rich in vegs,fruits,whole grain/high fiber,fish,lean meat, Limit sat/trans fats,cholesterol & added salts & sugars and Other additional outcome/goals: Intervention/Plan:: Assess current eating habits and Other Additional plan/interventions 30-day Reassessments:: Not Met Reassessment Notes & Comments:: Pt has not attended CR since 06/29/24. Education Gave educational materials for:: Signs & symptoms of hypoglycemia, Signs & symptoms of hyperglycemia, Relate diabetes to coronary artery disease and Healthy eating Core - Final Assessment Hypertension Resting Blood Pressure:: 110/64 [place] [employer] Hypertension Guidelines Core - 60-Day Assessment Visit Date of Eval: 07/26/24 Session #:: 10 (Pt has not attended CR since 06/29/24.) Medication Compliance Preventative Medication(s):: Aspirin, Statin/lipid, Beta perry and ARB (Angiotensi Rcap) H/O mental health issues: depression, anxiety, or addiction?: Yes Doesn?t believe in the benefits of treatment?: No Believes medications are unnecessary or harmful?: No Has a concern about medication side effects?: No Expresses concern over the cost of medications?: No Outcomes/Goals: Verbalizes medications,desired effect & common side effects @ DC, Pt self-reports following medication regimen, Keeps card in wallet w/medications listed by DC and Other additional outcome/goals: Interventions/plans: Instruct on medication effects & side effects, Review medication list w/patient every two weeks, Instruct importance of taking meds as ordered & assist problem solving and Other additional Tobacco Use Tobacco Use: Non-smoker Hypertension Hypertension Diagnosis:: Hypertension ICD-10 I10 Resting Blood Pressure:: 140/74 Resting Blood Pressure:: 110/64 [place] [employer] Hypertension Guidelines Peak Exercise Blood Pressure:: 144/78 Outcomes/Goals: Able to verbalize/achieve optimal blood pressure <130/80, Incorporates diet changes & exercise for blood pressure control by DC and Other additional outcomes/goals Interventions/plan: Instruct on optimal blood pressure, hypertension & medications, Instruct on effects of sodium, alcohol, stress, exercise &hypertension and Other additional plan/interventions 30 day Reassessments:: Met Reassessment Notes & Comments:: Pt has not attended CR since 06/29/24. Tobacco Cessation Referral Smoking Cessation Referral:: No Individual Education/Counseling:: No Education Schedule Given:: Yes Psychosocial - 30-Day Assess Target Goals Target Goals Referral to Behavioral Health PS - Interventions: Yes: Attend Stress Management Classes Outcomes/Goals: See list Psychosocial Outcomes/Goals:: ID's personal stressors & 2 strategies to manage stress by discharge and Other Additional outcome/goals: Psychosocial - 60-Day Assess VIsit Date of Eval: 07/26/24 Session #:: 10 (Pt has not attended CR since 06/29/24.) History of previous Mental disease:: Yes History of Emotional Disorders: Anxious and Depression Target Goals Target Goals Psychosocial Test Tool Used:: [employer] QOL Cardiac and PHQ-9 Questionnaire phq-9 Severity See PHQ-9 Score: 4 Referral to Behavioral Health PS - Interventions: Yes: Attend Stress Management Classes Outcomes/Goals: See list Psychosocial Outcomes/Goals:: ID's personal stressors & 2 strategies to manage stress by discharge and Other Additional outcome/goals: Intervention/Plan: See List Interventions/Plan:: Assess stressors,coping strategies & signs of derpression on admission, Instruct/assist pt to develop coping & personal stress Mgt s trategies, Refer to Behavioral Health if appropriate, Refer to Physician if appropriate, Instruct patient to recognize signs & symptoms of depression, Instruct patient to recog and Other additional plan/intervention 30-day Reassessments: 30 day Reassessments:: Not Met Reassessment Notes & Comments:: Pt has not attended CR since 06/29/24. Psychosocial - 90-Day Assess Target Goals Target Goals Referral to Behavioral Health PS - Interventions: Yes: Attend Stress Management Classes Psychosocial - Final Assessmen Target Goals Target Goals Referral to Behavioral Health PS - Interventions: Yes: Attend Stress Management Classes Nutrition - 90-Day Assessment Weight Mgt (Other Care) Height: 5 ft 8.5 in Weight:: 215 lb 8 oz BMI: 32.3 Nutrition - Final Assessment Weight Mgt (Other Care) Height: 5 ft 8.5 in Weight:: 215 lb 8 oz BMI: 32.3
[2024-07-26 07:09] VITALS: BP 110/64; BP 140/74; BMI 32.3
== END 2024-08-22 23:59 ==
LOC: CR 07:03
DX: Z98.890 Other specified postprocedural states (principal); Z95.828 Presence of other vascular implants and grafts; Z86.79 Personal history of other diseases of the circulatory system
CPT/HCPCS: 93798

== ENCOUNTER → 2024-08-01 | Outpatient (CLI) | payer BC, SELFPAY ==
[2024-07-26 07:09] VITALS: BMI 32.3
== END | disposition home or self-care (01) ==
LOC: LABSPEC 18:43
DX: A09 Infectious gastroenteritis and colitis, unspecified (principal)
CPT/HCPCS: 87177; 87209; 87493

== ENCOUNTER → 2024-10-31 | Outpatient (CLI) | payer BC, SELFPAY | END | disposition home or self-care (01) | LOC: LAB 11:23 | DX: I71.21 Aneurysm of the ascending aorta, without rupture (principal); Z98.890 Other specified postprocedural states; Z86.79 Personal history of other diseases of the circulatory system | CPT/HCPCS: 36415; 82565 ==